=== PATIENT | male | born 1945 | race African-American/Black ===

== ENCOUNTER 2018-02-22 14:57 | Inpatient (IN) | payer OTHER ==
[~2018-02-22] VITALS: Ht 170.2 cm; Wt 65.3 kg
--- NOTE | ~2018-02-22 | PLAN ---
[facility] [place] [address] REHAB UNIT PLAN OF CARE Name: KARY LATHAM Room #: 506-1 ADM IN M.R.#: [id number] Admission: 02/22/18 Attend Phys: Dave Sandra MD Discharge: Date of : 41 Report #: [id number] THIS REPORT FOR: //name// CC: Dave Sandra Physician staff ROSALVA CONCHITA DATE OF SERVICE: 02/24/2018 PROGRESS NOTE AND OVERALL PLAN OF CARE SUBJECTIVE: The patient was seen earlier. His last recorded temperature is 36.6, pulse 73, respirations 17, blood pressure 117/68. He was sleepy, but would easily arouse. He has had some problems with incontinence of urine. He has right-sided weakness. No focal calf swelling. He has been working in therapies with transfers max assist, gait max assist of 2 in the parallel bars for 8 feet. In occupational therapy, upper body dressing is min assist with lower body dressing dependent. In speech therapy, he does have [id number] comprehensive deficits. ASSESSMENT: 1. Left thalamic cerebrovascular accident. 2. Right hemiparesis with troy-coordination deficits. 3. Dysarthria. 4. Rule out dysphagia. 5. 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 6. Lumbosacral canal stenosis with radiculopathy. 7. Past history of multiple cerebrovascular accidents with a prior right thalamic infarct 08/06/2017. PLAN: The overall plan of care is based on the preadmission screen, post-admission physician evaluation and information garnered from therapy assessments. 1. Estimated length of stay is probably 2 weeks to 3 weeks pending progress. 2. Medical prognosis is reasonably good. 3. Anticipated interventions includes the interdisciplinary acute inpatient rehabilitation program with PT, OT, speech rehab nursing assisting regarding medication management, skin care prophylaxis, bowel and bladder issues, nursing education. We will have the interdisciplinary acute inpatient rehabilitation program involved as well as the retail consultant physicians. 4. Anticipated functional outcomes would be for the patient to hopefully be ambulatory again at a walker level and be independent for basic ADLs as well as improvement in cognition. 5. Discharge destination would be back to the home setting where he lives with his sister. 6. Expected therapy by discipline includes PT, OT and speech 1 hour per day [address] [address] REHAB UNIT PLAN OF CARE Name: KARY LATHAM Room #: 506-1 ADM IN .R.#: [id number] Admission: 02/22/18 Attend Phys: Dave Sandra MD Discharge: Date of : 43 Report #: [id number] each five days a week throughout the duration of the acute inpatient rehabilitation stay. <ELECTRONICALLY SIGNED> By: Dave Sandra MD 03/08/18 1213 [id number] [id number] Dave Sandra MD /nt
--- NOTE | ~2018-02-22 | H ---
[facility] [place] [address] HISTORY AND PHYSICAL Name: KARY LATHAM Room #: 506-1 ADM IN M.R.#: [id number] Admission: 02/22/18 Attend Phys: Dave Sandra MD Discharge: Date of : 43 Report #: [id number] THIS REPORT FOR: //name// CC: Dave Sandra Physician staff ROSALVA CONCHITA DATE OF SERVICE: 02/22/2018 HISTORY OF PRESENT ILLNESS: This is a 72-year-old -[place] male who presented to the [facility] with right-sided facial droop, right leg and arm weakness and dysarthria. The patient has a history of 5 previous CVAs with his most recent back in 07/2017. The patient was evaluated by Neurology and was found on MRI imaging to have an acute left thalamic CVA and posterior limb of IC stroke. He continued with right hemiparesis and dysarthria and is now admitted to acute inpatient rehab unit for physical, occupational and speech therapies. Today, the patient reports some mild pain in his knees. He reports history of gout in his knees. He denies cough, shortness of air, chest pain. He denies nausea, constipation or dysuria. He reports left toe amputation and left thigh skin graft approximately 1 year ago. He does have some chronic back pain related to cervical spinal canal stenosis and lumbosacral spinal canal stenosis with radiculopathy. PAST MEDICAL HISTORY: CVA x 5, type 2 diabetes, history of left foot transmetatarsal amputation, peripheral vascular disease, hyperlipidemia, hypertension, seizure disorder, severe cervical spinal canal stenosis with myelopathy, lumbosacral spinal canal stenosis with radiculopathy, peripheral neuropathy, seasonal allergies, GERD. SOCIAL HISTORY: The patient lives in a house with his sister. Step to enter, utilizes front wheel walker premorbid due to poor balance. HABITS: The patient quit smoking tobacco approximately 20 years ago. No illicit drug use. CODE STATUS: Full code. ALLERGIES: No known drug allergies. CURRENT MEDICATIONS: Protonix 20 mg daily, Claritin 10 mg daily, lisinopril 10 mg daily, labetalol 200 mg twice a day, Humalog sliding scale a.c. and at bedtime, Lantus 5 units at bedtime, glucose tablets p.r.n., gabapentin 300 mg at bedtime, folic acid 1 mg daily, Colace 100 mg twice a day p.r.n., Voltaren gel 2 g q.i.d., Plavix 75 mg daily, Lipitor 40 mg at bedtime, aspirin 81 mg daily. REVIEW OF SYSTEMS: Remainder of his 12-point review of systems is negative [address] [address] HISTORY AND PHYSICAL Name: KARY LATHAM Room #: 506-1 [facility] IN M.R.#: [id number] Admission: 02/22/18 Attend Phys: Dave Sandra MD Discharge: Date of : 43 Report #: [id number] except as listed in HPI. PHYSICAL EXAMINATION: VITAL SIGNS: BP 173/93, pulse of 81, temperature 98.0, respirations 17, 100% oxygen sat on room air. GENERAL: He is awake, alert. He is oriented x 4. He is in no acute distress, very pleasant man. HEENT: Head is normocephalic. Eyes: EOMs are intact. No icterus, no nystagmus. ENT: No sinus tenderness. CHEST: Scattered rhonchi throughout. No crackles. CARDIAC: Regular rate and rhythm. S1, S2. ABDOMEN: Bowel sounds are positive. Soft, nontender, nondistended. GENITOURINARY: No CVA tenderness. EXTREMITIES: He has had a transmetatarsal amputation on the left foot. Negative Homans sign bilateral. He does have a right foot drop. Decreased range of motion bilateral upper extremities, better range of motion of the left than the right. He does have a right pronator drift, right-sided weakness compared to the left, decreased medication manager strength on the right. He does have a lower body dressing max assist, toileting total assist, mod assist for side to side rolling. Nursing utilized overhead lift for chair to bed transfers. NEUROLOGIC: He does have a mild right facial droop and dysarthria, able to follow 2-step commands. PSYCHIATRIC: Very pleasant affect. LABORATORY DATA: On 02/22/2018, sodium 138, potassium 4.7, BUN 35, creatinine 1.3, glucose 146, calcium 10.2. WBC 7.8, hemoglobin 10.3, hematocrit 32.4, platelets 194. assessment: 1. Left thalamic CVA 2. right hemiparesis with troy-coordination deficits 3. Dysarthria 4. rule out dysphagia 5. hx premorbid severe cervical spinal cord stenosis with myelopathy 6. lumbosacral canal stenosis with radiculopathy 7. past hx of multiple CVA with prior right thalamic infarct on 08/06/17 PLAN: The patient has been admitted to acute inpatient rehab unit for physical, occupational and speech therapies. We will have the hospitalist consult for acute medical issues. He will also have neuropsychology testing done. He will have SCDs for DVT prophylaxis. He will be on incentive spirometry for pneumonia [address] [address] HISTORY AND PHYSICAL Name: KARY LATHAM Room #: 506-1 ADM IN M.R.#: [id number] Admission: 02/22/18 Attend Phys: Dave Sandra MD Discharge: Date of : 43 Report #: [id number] prophylaxis, he is already on Protonix for gastrointestinal prophylaxis. We will have a team conference on Monday. <ELECTRONICALLY SIGNED> By: MEHRDAD Kowalski 03/06/18 1240 0833 [id number] MEHRDAD Kowalski /nt
--- NOTE | ~2018-02-22 | HC ---
[facility] [place] [address] CONSULTATION Name: KARY LATHAM Room #: 506-1 ADM IN M.R.#: [id number] Admission: 02/22/18 Attend Phys: Dave Sandra MD Discharge: Date of : 43 Report #: [id number] THIS REPORT FOR: //name// CC: Dave Sandra Physician staff ROSALVA ARANGO DATE OF SERVICE: 02/24/2018 NEUROBEHAVIORAL STATUS EXAM: ATTENDING PHYSICIAN: Dave Sandra MD. UNIVERSITY ARCHIVIST: Zafar Anderson, PhD. CLINICAL PRESENTATION: The patient is a 72-year-old male admitted to the [facility] Rehab Unit for a comprehensive inpatient rehabilitation program to improve functional mobility, activities of daily living and self-care and mental status secondary to a left thalamic CVA. His medical history includes a prior stroke with residual right-sided weakness. Initial inpatient admission indicated functional difficulty in speaking, right hemiparesis, dysarthria and decreased functional mobility. The overall assessment on the rehab unit is a left thalamic CVA, right hemiparesis with troy-coordination deficits, dysarthria, rule out dysphagia, history of premorbid severe cervical spinal cord stenosis with myelopathy, lumbosacral canal stenosis with radiculopathy, past history of multiple CVAs with prior right thalamic infarct on 08/06/2017. A complete description of his medical condition, history and medications can be found in his medical record. Neuropsychological consultation was requested to provide assistance in the assessment of cognitive and emotional status and to provide recommendations and services. Prior to this most recent admission, he was living with the assistance of his sister in her home. He has 3 children. 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 He is a high school graduate. His family of origin included 3 brothers and 2 sisters. One brother and one sister are . He does not report a prior history of treatment for anxiety/depression or alcohol/drug abuse. The patient does report having been independent with activities of daily living and driving prior to this recent stroke. TECHNIQUES UTILIZED: Clinical interview, review of medical records, staff consultation and behavioral observation, mini mental status exam 2 standard version, clock drawing and verbal fluency assessment (letter and category) and brief abstract reasoning test. [facility] [address] [place] [address] CONSULTATION Name: KARY LATHAM Room #: 506-1 ADM IN M.R.#: [id number] Admission: 02/22/18 Attend Phys: Dave Sandra MD Discharge: Date of : 43 Report #: [id number] EXAMINATION FINDINGS: The patient was alert and cooperative with the assessment. He accurately described the reason for his hospitalization and was also able to report symptoms that have occurred as a result of the stroke. He does not report difficulty with sleep, appetite, memory, word finding or anxiety/depression. His main areas of concern are the weakness in his arm. His performance on the MMSE 2 brief version was extremely low with moderate to severe impairment suggested with a raw score of 11 of 16. He was 3/3 for initial registration, 4/5 for orientation to time, 4/[address] and 0/3 for immediate recall of 3 items after a brief time delay and distraction. Performance on the MMSE 2 standard version was extremely low with a raw score of 19 of 30. He was 1/5 for serial sevens, 2/2 for naming, 1/1 for repetition, 3/3 for auditory comprehension. He was able to read a sentence and follow the written command. Because of the right hemiparesis, he could not write a sentence or copy a simple geometric design. However, the patient was also unable to dictate a sentence. Letter fluency was extremely low with a raw score of 2. Category fluency as assessed through animal fluency was extremely low with a raw score of 3. Brief abstract reasoning assessment while impaired was better maintained than verbal fluency with a raw score of 5/8. Impairment is noted with sustained attention/concentration, memory and verbal fluency. Auditory comprehension and reasoning is much better maintained than verbal expression and fluency. DIAGNOSTIC IMPRESSION: Major neurocognitive disorder due to vascular disease, without behavioral problems -- extent to be determined, likely in the moderate range. RECOMMENDATIONS: The patient will require assistance to compensate for deficits in verbal fluency. Auditory comprehension is well maintained. The ability to followup instructions will be satisfactory. However, limitations in verbal fluency will require assistance in strategies to improve communication in verbal expression. The use of a communication board may be of benefit to assist verbal expression for communication of basic needs. Family education about the extent of his deficits will also be necessary for improving adjustment upon discharge. [address] [address] CONSULTATION Name: KARY LATHAM Room #: 506-1 ADM IN M.R.#: [id number] Admission: 02/22/18 Attend Phys: Dave Sandra MD Discharge: Date of : 43 Report #: [id number] Thank you very much for allowing me to provide the consultation on this patient. <ELECTRONICALLY SIGNED> By: Zafar Anderson, PhD 03/18/182127 [id number] Zafar Anderson, PhD /nt
--- NOTE | ~2018-02-22 | H ---
[facility] [place] [address] HISTORY AND PHYSICAL Name: KARY LATHAM Room #: 506-1 ADM IN M.R.#: [id number] Admission: 02/22/18 Attend Phys: Dave Sandra MD Discharge: Date of : 43 Report #: [id number] THIS REPORT FOR: //name// CC: Dave Sandra Physician staff ROSALVA ARANGO POST-ADMISSION PHYSICIAN EVALUATION HISTORY OF PRESENT ILLNESS: The patient is a 72-year-old -T[place] male with prior history of cerebrovascular accident with residual right-sided weakness, who presented to the Emergency Department at the [facility] with worsening right-sided weakness. He was noted to have difficulty speaking. He is noted to have right hemiparesis, dysarthria, and decline in functional mobility. He was diagnosed with a left thalamic CVA with right hemiparesis. He was noted to have a functional decline from premorbid status. He has been admitted now for acute in-hospital inpatient rehabilitation. PAST MEDICAL HISTORY: Includes lumbosacral spinal canal stenosis with radiculopathy. He is noted to have severe cervical spinal canal stenosis with myelopathy, asymptomatic bacteremia. He has had multiple CVAs with a prior right thalamic infarct on 08/06/2017, history of renal insufficiency, and hyperlipidemia. He has had prior left toes amputated and had a skin graft with this. MEDICATIONS: Please see the full medication listing. SOCIAL HISTORY: He lives with his sister, house, 2 steps in, she works during the day. He used a walker to get around. REVIEW OF SYSTEMS: No current complaints of chest pain, shortness of breath, or abdominal discomfort. PHYSICAL EXAMINATION: GENERAL: The patient is a pleasant 72-year-old -[place] male, in no obvious distress. VITAL SIGNS: Last recorded temperature is 36.7, pulse is 81, respirations are 17, and blood pressure is 173/93. NEUROLOGIC: He is alert, pleasant, right-handed male, slender build. Facies appeared symmetric. He appears to have a depressed right nasolabial fold. Some mild dysarthria. EOMs are full. No obvious visual field neglect. CHEST: Sounded clear to auscultation. CARDIOVASCULAR: Regular rate and rhythm. ABDOMEN: Bowel sounds positive. GENITOURINARY AND RECTAL: Deferred. MUSCULOSKELETAL: Functional range of motion of the left upper extremities [address] [address] HISTORY AND PHYSICAL Name: KARY LATHAM Room #: 506-1 ADM IN M.R.#: [id number] Admission: 02/22/18 Attend Phys: Dave Sandra MD Discharge: Date of : 43 Report #: [id number] without focal weakness. Functional range of motion of the left lower extremities. He has the old well-healed skin graft, left anterior thigh. No focal calf swelling. Strength of the left lower extremity is a grade 4-/5. Functional range of motion of the right upper extremity with clumsiness, decreased coordination, strength grade is 3+/5. Right lower extremity strength is a grade 3-3+/5. DTRs are 1 to trace. Negative Medina's. No clonus at the ankle. He needs assistance with functional mobility and ADLs. ASSESSMENT: A 72-year-old -[place] right-handed male with the following problem list: 1. Left thalamic cerebrovascular accident. 2. Right hemiparesis with troy-coordination deficits. 3. Dysarthria. 4. Rule out dysphagia. 5. 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 6. Lumbosacral canal stenosis with radiculopathy. 7. Past history of multiple cerebrovascular accidents with a prior right thalamic infarct on 08/06/2017. PLAN: The patient is admitted for acute in-hospital inpatient rehabilitation. Please see the dictated history and physical from Lucia Tillman, nurse practitioner. From a postadmission physician evaluation perspective, there are no relevant changes since the preadmission screening. Please see the above review of prior and current medical and functional conditions and comorbidities. Please see the patient's previous and current functional status. As far as risk of complications, please see the above noted comorbidities. The initial plan of care involves the interdisciplinary acute inpatient rehabilitation program with the goal of maximizing the patient's functional independence, so that he can hopefully return back to his prior living situation. Measurable functional goals would be for the patient to become modified independent with transfers, mobility, and ADLs, so he can return back to the home setting. Speech therapy is involved as well. Prognosis is reasonably good with estimated length of stay probably at least 2 weeks to 3 weeks pending progress. Potential barriers would include his multiple medical comorbidities and decreased functional status. <ELECTRONICALLY SIGNED> By: Dave Sandra MD 03/08/18 1213 0819 [id number] Dave Sandra MD /[facility]
[2018-02-22] MEDS ORDERED: ASPIR 8181 MG PO (15:43)
[2018-02-22] MEDS ORDERED: ATORVASTATIN CA40 MG PO (15:43)
[2018-02-22] MEDS ORDERED: ALLERGY10 M1 PO (15:44)
[2018-02-22] MEDS ORDERED: PLAVIX 75 MG TA75 M1 PO (15:45)
[2018-02-22] MEDS ORDERED: VOLTAREN GEL 1100 G2 TOP (15:46)
[2018-02-22] MEDS ORDERED: FOLIC ACID1 MG PO (15:46)
[2018-02-22] MEDS ORDERED: NEURONTIN 300300 M1 PO (15:47)
[2018-02-22] MEDS ORDERED: LEVEMIR SUBQ (15:48)
[2018-02-22] MEDS ORDERED: LABETALOL HCL100 MG PO (15:48)
[2018-02-22] MEDS ORDERED: LISINOPRIL10 MG PO (15:49)
[2018-02-22] MEDS ORDERED: OMEPRAZOLE 20 M20 M1 PO (15:49)
[2018-02-22] MEDS ORDERED: ONGLYZA2.5 MG PO (15:50)
[2018-02-22] MEDS ORDERED: HUMALOG100 UNIT/1 SUBQ ×2 (15:50→15:51)
[2018-02-22 16:50] VITALS: BP 169/76
[2018-02-22 20:00] VITALS: BP 170/75
[2018-02-23 06:32] LABS: HEMATOCRIT 32.4 % (42.0-52.0); HEMOGLOBIN 10.3 gm/dL (14.0-18.0); MCH 25.1 pg (26.0-34.0); MCHC 31.9 g/dL (28.0-37.0); MCV 78.6 fL (80.0-100.0); RBC 4.12 mil/uL (4.50-6.00); WBC 7.8 thou/uL (4.0-11.0)
[2018-02-23 06:46] LABS: CALCIUM 10.2 mg/dL (8.5-10.1); CREATININE 1.3 mg/dL (0.7-1.3); POTASSIUM 4.7 mmol/L (3.5-5.1)
[2018-02-23 07:27] VITALS: BP 173/93
[2018-02-23 11:20] LABS: ALBUMIN 3.3 g/dL (3.4-5.0); CHOLESTEROL 158 mg/dL (<200); DIRECT BILIRUBIN < 0.1 mg/dL (<0.1-0.3); HDL CHOLESTEROL 69 mg/dL (>40); LDL CHOLESTEROL 79 mg/dL (<100); SGOT 26 U/L (15-37); SGPT 28 U/L (30-65); TC:HDL 2.3 Ratio (Not establshd); TOTAL BILIRUBIN 0.4 mg/dL (<0.1-1.0); TOTAL PROTEIN 7.8 g/dL (6.4-8.2); TRIGLYCERIDE 51 mg/dL (<150); VLDL 10 mg/dL (<40)
[2018-02-23 12:35] VITALS: BP 136/60
[2018-02-23 20:00] VITALS: BP 117/68
[2018-02-24 19:25] VITALS: BP 115/57
[2018-02-25 07:20] VITALS: BP 134/66
[2018-02-25 19:22] VITALS: BP 114/46
[2018-02-26 07:20] VITALS: BP 132/58
[2018-02-26 19:58] VITALS: BP 148/70
[2018-02-27 07:40] VITALS: BP 139/74
[2018-02-27 19:15] VITALS: BP 146/78
[2018-02-28 07:15] VITALS: BP 135/63
[2018-02-28 19:35] VITALS: BP 136/74
[2018-03-01 07:42] VITALS: BP 140/69
[2018-03-01 12:10] LABS: HEMATOCRIT 32.5 % (42.0-52.0); HEMOGLOBIN 10.3 gm/dL (14.0-18.0); MCHC 31.6 g/dL (28.0-37.0); MCV 79.2 fL (80.0-100.0); RBC 4.11 mil/uL (4.50-6.00); RDW 16.6 % (10.5-14.5); WBC 7.3 thou/uL (4.0-11.0)
[2018-03-01 12:22] LABS: CALCIUM 10.9 mg/dL (8.5-10.1); CREATININE 1.7 mg/dL (0.7-1.3)
[2018-03-01 12:25] LABS: POTASSIUM 6.4 mmol/L (3.5-5.1)
[2018-03-01 19:15] VITALS: BP 167/44
[2018-03-01 20:40] VITALS: BP 162/68
[2018-03-02 06:14] LABS: CALCIUM 9.3 mg/dL (8.5-10.1); CREATININE 1.4 mg/dL (0.7-1.3); POTASSIUM 4.7 mmol/L (3.5-5.1)
[2018-03-02 09:02] VITALS: BP 138/88
[2018-03-02 19:50] VITALS: BP 132/75
[2018-03-03 07:30] VITALS: BP 132/50
[2018-03-03 19:35] VITALS: BP 116/54
[2018-03-04 08:16] VITALS: BP 133/69
[2018-03-04 19:18] VITALS: BP 120/51
[2018-03-05 07:40] VITALS: BP 148/95
[2018-03-05 19:20] VITALS: BP 153/76
[2018-03-06 08:39] VITALS: BP 141/66
[2018-03-06 19:12] VITALS: BP 104/58
[2018-03-07 07:20] VITALS: BP 150/63
[2018-03-07 19:20] VITALS: BP 169/74
[2018-03-08 07:21] VITALS: BP 123/74
[2018-03-08 19:53] VITALS: BP 144/63
[2018-03-09 05:38] LABS: ABSOLUTE NEUTROPHILS 3.9 thou/uL (1.4-8.2); BASOPHILS 0.5 % (0.0-2.0); HEMATOCRIT 27.6 % (42.0-52.0); HEMOGLOBIN 8.9 gm/dL (14.0-18.0); LYMPHOCYTES 24.8 % (24.0-44.0); MCH 25.2 pg (26.0-34.0); MCHC 32.1 g/dL (28.0-37.0); MCV 78.3 fL (80.0-100.0); MONOCYTES 9.7 % (1.0-8.0); PLATELET COUNT 200 thou/uL (150-400); RBC 3.53 mil/uL (4.50-6.00); RDW 17.3 % (10.5-14.5); WBC 6.6 thou/uL (4.0-11.0)
[2018-03-09 06:01] LABS: CALCIUM 9.4 mg/dL (8.5-10.1); CREATININE 1.8 mg/dL (0.7-1.3); MAGNESIUM 2.4 mg/dL (1.8-2.4)
[2018-03-09 06:12] LABS: POTASSIUM 6.5 mmol/L (3.5-5.1)
[2018-03-09 07:20] VITALS: BP 120/53
[2018-03-09 12:16] LABS: URINE BILIRUBIN NEGATIVE (Negative); URINE BLOOD NEGATIVE (Negative); URINE CLARITY CLEAR; URINE COLOR YELLOW; URINE GLUCOSE-RANDOM* NEGATIVE (Negative); URINE KETONES NEGATIVE (Negative); URINE NITRITE-REFLEX NEGATIVE (Negative); URINE PROTEIN (DIPSTICK) NEGATIVE (Negative); URINE UROBILINOGEN 0.2 E.U./dl (0.2-1.0)
[2018-03-09 12:19] LABS: URINE LEUKOCYTES-REFLEX 3+ (Negative)
[2018-03-09 12:22] LABS: CASTS None Seen /LPF (None Seen); SQUAMOUS 0-3 Few /LPF (0-3)
[2018-03-09 12:23] LABS: BACTERIA-REFLEX 1-9 Few /HPF (None Seen); CRYSTALS None Seen /LPF (None Seen)
[2018-03-09 12:24] LABS: URINE RBC 0-2 Rare /HPF (0-2)
[2018-03-09 19:57] VITALS: BP 139/61
[2018-03-10 08:00] VITALS: BP 136/59
[2018-03-10 10:17] LABS: CALCIUM 9.7 mg/dL (8.5-10.1); CREATININE 1.7 mg/dL (0.7-1.3)
[2018-03-10 19:44] VITALS: BP 125/59
[2018-03-11 06:51] LABS: ABSOLUTE NEUTROPHILS 4.1 thou/uL (1.4-8.2); BASOPHILS 0.8 % (0.0-2.0); EOSINOPHILS 6.9 % (0.0-3.0); LYMPHOCYTES 19.6 % (24.0-44.0); MCH 25.1 pg (26.0-34.0); MCV 78.5 fL (80.0-100.0); MONOCYTES 10.8 % (1.0-8.0); PLATELET COUNT 206 thou/uL (150-400); POLYS 61.9 % (36.0-66.0); RBC 3.57 mil/uL (4.50-6.00); RDW 17.3 % (10.5-14.5); WBC 6.7 thou/uL (4.0-11.0)
[2018-03-11 06:59] VITALS: BP 129/61
[2018-03-11 06:59] LABS: CALCIUM 9.3 mg/dL (8.5-10.1); CREATININE 1.6 mg/dL (0.7-1.3); POTASSIUM 5.1 mmol/L (3.5-5.1)
[2018-03-11 07:03] LABS: % SATURATION 15 % (20-39); IRON 34 ug/dL (65-175); TIBC 234 ug/dL (250-450)
[2018-03-11 08:08] LABS: FOLIC ACID 42.3 ng/mL (8.6-58.9)
[2018-03-11 21:13] VITALS: BP 123/63
[2018-03-12 04:31] LABS: CREATININE 1.5 mg/dL (0.7-1.3); POTASSIUM 4.9 mmol/L (3.5-5.1)
[2018-03-12 04:33] LABS: ABSOLUTE NEUTROPHILS 3.5 thou/uL (1.4-8.2); BASOPHILS 0.8 % (0.0-2.0); EOSINOPHILS 7.2 % (0.0-3.0); HEMATOCRIT 27.8 % (42.0-52.0); HEMOGLOBIN 8.8 gm/dL (14.0-18.0); LYMPHOCYTES 23.2 % (24.0-44.0); MCHC 31.7 g/dL (28.0-37.0); MCV 78.8 fL (80.0-100.0); MONOCYTES 11.5 % (1.0-8.0); PLATELET COUNT 202 thou/uL (150-400); POLYS 57.3 % (36.0-66.0); RBC 3.53 mil/uL (4.50-6.00)
[2018-03-12 08:39] VITALS: BP 136/73
[2018-03-12 19:45] VITALS: BP 138/48
[2018-03-13 04:29] LABS: ABSOLUTE NEUTROPHILS 4.3 thou/uL (1.4-8.2); BASOPHILS 0.7 % (0.0-2.0); EOSINOPHILS 6.7 % (0.0-3.0); HEMATOCRIT 28.8 % (42.0-52.0); HEMOGLOBIN 9.4 gm/dL (14.0-18.0); MCH 25.7 pg (26.0-34.0); MCHC 32.6 g/dL (28.0-37.0); MCV 78.8 fL (80.0-100.0); MONOCYTES 10.6 % (1.0-8.0); PLATELET COUNT 197 thou/uL (150-400); RBC 3.66 mil/uL (4.50-6.00); RDW 16.9 % (10.5-14.5)
[2018-03-13 04:30] LABS: CALCIUM 9.2 mg/dL (8.5-10.1); CREATININE 1.5 mg/dL (0.7-1.3); POTASSIUM 4.8 mmol/L (3.5-5.1)
[2018-03-13 07:30] VITALS: BP 131/73
[2018-03-13 19:30] VITALS: BP 121/63
[2018-03-14 07:30] VITALS: BP 140/62
[2018-03-14 19:45] VITALS: BP 148/63
[2018-03-15 09:13] VITALS: BP 124/66
[2018-03-15 19:28] VITALS: BP 152/73
[2018-03-16 07:30] VITALS: BP 140/70
[2018-03-16 19:05] VITALS: BP 130/51
[2018-03-17 19:35] VITALS: BP 104/51
[2018-03-18 07:20] VITALS: BP 133/52
[2018-03-18 19:15] VITALS: BP 132/61
[2018-03-19 07:00] VITALS: BP 134/54
[2018-03-19 19:15] VITALS: BP 139/55
[2018-03-20 04:09] LABS: CALCIUM 9.2 mg/dL (8.5-10.1); CREATININE 1.6 mg/dL (0.7-1.3); POTASSIUM 4.6 mmol/L (3.5-5.1)
[2018-03-20 04:16] LABS: ABSOLUTE NEUTROPHILS 3.7 thou/uL (1.4-8.2); BASOPHILS 0.6 % (0.0-2.0); EOSINOPHILS 8.5 % (0.0-3.0); HEMATOCRIT 27.5 % (42.0-52.0); HEMOGLOBIN 8.6 gm/dL (14.0-18.0); LYMPHOCYTES 23.4 % (24.0-44.0); MCH 25.1 pg (26.0-34.0); MCHC 31.3 g/dL (28.0-37.0); MONOCYTES 10.7 % (1.0-8.0); PLATELET COUNT 169 thou/uL (150-400); POLYS 56.8 % (36.0-66.0); RBC 3.44 mil/uL (4.50-6.00); RDW 17.9 % (10.5-14.5); WBC 6.5 thou/uL (4.0-11.0)
[2018-03-20 07:16] VITALS: BP 147/66
[2018-03-20 19:05] VITALS: BP 120/62
[2018-03-21 07:30] VITALS: BP 125/57
[2018-03-21 21:00] VITALS: BP 137/66
[2018-03-22 07:34] VITALS: BP 128/57
[2018-03-22 20:50] VITALS: BP 158/72
[2018-03-23] MEDS ORDERED: HYDRALAZINE 10M10 MG PO (05:38)
[2018-03-23] MEDS ORDERED: TYLENOL325 MG PO (05:38)
[2018-03-23] MEDS ORDERED: SENNA8.6 MG PO (05:38)
[2018-03-23] MEDS ORDERED: UNICOMPLEX M TA1 TA1 PO (05:38)
[2018-03-23] MEDS ORDERED: PROBIOTIC1 EAC1 PO (05:38)
[2018-03-23] MEDS ORDERED: COLACE100 MG PO (05:38)
[2018-03-23] MEDS ORDERED: FLOMAX0.4 MG PO (05:38)
[2018-03-23] MEDS ORDERED: IRON325 PO (05:38)
[2018-03-23] MEDS ORDERED: PROSCAR 5MG TABL5 MG PO (05:38)
[2018-03-23 07:30] VITALS: BP 134/67
[2018-03-23 09:00] VITALS: BP 134/67
== END 2018-03-23 14:48 | DRG 65 ==
PROVIDERS: Hospitalist; Nurse Practitioner; Nurse Practitioner Acute Care; Nurse Practitioner Family; Physical Medicine & Rehabilitation
DX: I63.89 Other cerebral infarction (principal); G81.91 Hemiplegia, unspecified affecting right dominant side; G95.89 Other specified diseases of spinal cord; N39.0 Urinary tract infection, site not specified; N17.9 Acute kidney failure, unspecified; R27.8 Other lack of coordination; M48.07 Spinal stenosis, lumbosacral region; M54.17 Radiculopathy, lumbosacral region; G40.909 Epilepsy, unspecified, not intractable, without status epilepticus; E11.51 Type 2 diabetes mellitus with diabetic peripheral angiopathy without gangrene; E11.42 Type 2 diabetes mellitus with diabetic polyneuropathy; K21.9 Gastro-esophageal reflux disease without esophagitis; R47.1 Dysarthria and anarthria; F01.50 Vascular dementia, unspecified severity, without behavioral disturbance, psychotic disturbance, mood disturbance, and anxiety; E78.5 Hyperlipidemia, unspecified; K59.00 Constipation, unspecified; R39.15 Urgency of urination; E87.5 Hyperkalemia; D50.9 Iron deficiency anemia, unspecified; B95.2 Enterococcus as the cause of diseases classified elsewhere; R33.9 Retention of urine, unspecified; Z89.432 Acquired absence of left foot; Z87.891 Personal history of nicotine dependence; Z79.899 Other long term (current) drug therapy; Z79.02 Long term (current) use of antithrombotics/antiplatelets; Z79.4 Long term (current) use of insulin; Z79.82 Long term (current) use of aspirin; Z86.14 Personal history of Methicillin resistant Staphylococcus aureus infection; Z86.73 Personal history of transient ischemic attack (TIA), and cerebral infarction without residual deficits
CPT/HCPCS: 10112